=== PATIENT | female | born 1960 | race Caucasian/White ===

== ENCOUNTER 2016-08-02 18:20 | Emergency (ER) | payer MEDICAID, OTHER ==
[~2016-08-02] VITALS: Ht 162.6 cm; Wt 48.5 kg
[~2016-08-02 18:20] MED LIST: CIPR500T4 PO; NAPR-260 PO
[2016-08-02 18:43] VITALS: Ht 162.6 cm; Wt 48.5 kg
[2016-08-02] MEDS ORDERED: AMOX1TAB10 PO (20:48)
[2016-08-02] MEDS ORDERED: BEN25 PO (20:48)
[2016-08-02] MEDS ORDERED: IBUP400T22 PO (20:48)
[2016-08-02] MEDS ORDERED: CLIN-73 PO (20:51)
--- NOTE | 2016-08-02 20:56 | ERD ---
ER Documentation Chief Complaint Date/Time DATE: 08/02/16 TIME: 20:52 Chief Complaint right upper eyelid swelling HPI 56-year-old female with no significant past medical history presents to the ED complaining of an itchy and tender in her eyelid swelling that started intermittently 2 months ago. Reports that it feels slightly tender and describes the pain as a sharp type of pain and rates it a 8 out of 10. States that she wears glasses. Reports that she has been applying warm compresses. Denies any foreign bodies in her eye. Denies any eye pain, blurred vision, diplopia, headache, nausea, vomiting, diarrhea. Denies any fever, chills, cough , rhinorrhea, sinus pain. ROS All systems reviewed and are negative except as per history of present illness. Medications Home Meds Active Scripts Clindamycin Hcl* (Clindamycin Hcl*) 300 Mg Capsule, 300 MG PO TID for 7 Days, CAP Prov:ROGERIO WASHINGTON PA-C 08/02/16 Ibuprofen* (Motrin*) 400 Mg Tab, 400 MG PO Q6, #30 TAB take with food Prov:ROGERIO WASHINGTON PA-C 08/02/16 Diphenhydramine Hcl* (Benadryl*) 25 Mg Cap, 25 MG PO Q6, #30 CAP Prov:ROGERIO WASHINGTON PA-C 08/02/16 Naproxen* (Naprosyn*) 500 Mg Tablet, 500 MG PO BID Y for PAIN AND/OR INFLAMMATION, #30 TAB Prov:ROCHELLE OLSEN PA-C 04/07/16 Ciprofloxacin Hcl* (Ciprofloxacin Hcl*) 500 Mg Tablet, 500 MG PO BID for 7 Days , TAB Prov:ROCHELLE OLSEN PA-C 04/07/16 Allergies Allergies: Coded Allergies: codeine (Unverified Allergy, Intermediate, 08/02/16) rash PMhx/Soc Anesthesia Reaction: No Hx Neurological Disorder: No Hx Respiratory Disorders: No Hx Cardiac Disorders: No Hx Psychiatric Problems: No Hx Alcohol Use: Yes (occasional) Hx Substance Use: No Hx Tobacco Use: Yes Smoking Status: Current every day smoker Physical Exam Vitals Vital Signs Date Time Temp Pulse Resp B/P Pulse Ox O2 Delivery O2 Flow Rate FiO2 08/02/16 18:43 97.2 65 20 133/80 100 Physical Exam Const: [id number], well-nourished. In no acute distress. Head: Atraumatic, normocephalic Eyes: Red reflex appreciated. Normal Conjunctiva without injection. No purulent discharge. PERRLA. EOMI with no pain with extraocular movements. ENT: Normal external ear. Ear canal without erythema. Tympanic membrane pearly rubio without effusion or bulging. Nasal canal clear with normal turbinates. Moist oropharynx without tonsillar exudates. Non-erythematous pharynx. Uvula midline. No drooling. No trismus. Neck: No cervical midline tenderness. Full range of motion. No meningismus. No cervical lymphadenopathy. No JVD. Resp: Clear to auscultation bilaterally. No wheezing, rhonchi, rales, or crackles. No accessory muscle use. No retractions. Cardio: Regular rate and rhythm. No murmurs, rubs or gallops. Skin: Normal skin turgor. No petechiae or rashes Neur: Awake and alert. Normal gait. Normal coordination. Cranial Nerves II- VII intact. Normal finger to nose. Muscle strength 5/5. Sensation intact. Psych: Normal Mood and Affect Procedures/MDM This is a 56-year-old female with no significant past medical history presents the ED complaining of slightly itchy and painful inner eyelid that started intermittently 2 months ago. Patient is afebrile and nontoxic-appearing. Patient has normal vital signs. Patient's physical exam is consistent with possible early dacryocystitis. Patient's ocular symptoms have stabilized while they have been evaluated in the department and are appropriate for outpatient work up. Low suspicion for ruptured globe, retinal detachment, acute angle closure glaucoma, deep space infection, iritis, traumatic hyphema, conjunctivitis, subconjunctival hemorrhage, corneal abrasion, infectious keratitis, corneal ulcer, pterygium, hypopyon, blepharitis, episcleritis, hordeolum, chalazion, or other emergent conditions. Plan for 24 hour ophthalmologic follow up. Discharge medications: Clindamycin, ibuprofen, Benadryl Follow up with primary care physician in 1-2 days. Instructed patient to return to the ED sooner for any worsening symptoms. Patient's questions were answered. Patient understood and agreed with discharge plan. Patient discharged stable. Departure Diagnosis: Primary Impression: Dacrocystitis Laterality: right Qualified Code: H04.301 - Dacrocystitis, right Condition: Stable Patient Instructions: Dacrocystitis Referrals: [facility] YOU HAVE RECEIVED A MEDICAL SCREENING EXAM AND THE RESULTS INDICATE THAT YOU DO NOT HAVE A CONDITION THAT REQUIRES URGENT TREATMENT IN THE EMERGENCY DEPARTMENT. FURTHER EVALUATION AND TREATMENT OF YOUR CONDITION CAN WAIT UNTIL YOU ARE SEEN IN YOUR DOCTORS OFFICE WITHIN THE NEXT 1-2 DAYS. IT IS YOUR RESPONSIBILITY TO MAKE AN APPOINTMENT FOR FOLOW-UP CARE. IF YOU HAVE A PRIMARY DOCTOR --you should call your primary doctor and schedule an appointment IF YOU DO NOT HAVE A PRIMARY DOCTOR YOU CAN CALL OUR PHYSICIAN REFERRAL HOTLINE AT IF YOU CAN NOT AFFORD TO SEE A PHYSICIAN YOU CAN CHOSE FROM THE FOLLOWING [facility] [address] [facility] [address] [facility] [facility] [address] [facility] [address] [facility] [address] [facility]. [facility] [address] [facility] YOU HAVE RECEIVED A MEDICAL SCREENING EXAM AND THE RESULTS INDICATE THAT YOU DO NOT HAVE A CONDITION THAT REQUIRES URGENT TREATMENT IN THE EMERGENCY DEPARTMENT. FURTHER EVALUATION AND TREATMENT OF YOUR CONDITION CAN WAIT UNTIL YOU ARE SEEN IN YOUR DOCTORS OFFICE WITHIN THE NEXT 1-2 DAYS. IT IS YOUR RESPONSIBILITY TO MAKE AN APPOINTMENT FOR FOLOW-UP CARE. IF YOU HAVE A PRIMARY DOCTOR --you should call your primary doctor and schedule and appointment IF YOU DO NOT HAVE A PRIMARY DOCTOR YOU CAN CALL OUR PHYSICIAN REFERRAL HOTLINE AT . IF YOU CAN NOT AFFORD TO SEE A PHYSICIAN YOU CAN CHOSE FROM THE FOLLOWING [facility] INSTITUTIONS: [facility] [address] [place] [address] [facility] [address] [place] [address] [facility] [address] [place] [address] [facility] Hours: Mon - Fri 9:00 AM - 5:00 PM Additional Instructions: FOLLOW UP WITH YOUR PRIMARY CARE PHYSICIAN TOMORROW.Return to this facility if you are not improving as expected. ROGERIO WASHINGTON PA-C Aug 02, 2016 20:56
== END 2016-08-02 21:00 | disposition home or self-care (01) ==
LOC: FTE 18:20
DX: H04.301 Unspecified dacryocystitis of right lacrimal passage (principal); F17.210 Nicotine dependence, cigarettes, uncomplicated
CPT/HCPCS: 99283

== ENCOUNTER 2017-01-06 21:32 | Emergency (ER) | payer SELFPAY ==
[~2017-01-06] VITALS: Ht 167.6 cm; Wt 47.5 kg
[~2017-01-06 21:32] MED LIST changes: +BEN25 PO; +CLIN-73 PO; +IBUP400T22 PO
[2017-01-06 21:35] VITALS: Ht 167.6 cm; Wt 47.5 kg
== END 2017-01-07 01:23 | disposition left against medical advice (07) ==
LOC: E/R 21:32
DX: Z53.21 Procedure and treatment not carried out due to patient leaving prior to being seen by health care provider (principal)